=== PATIENT | female | born 1970 | race Caucasian/White ===

== ENCOUNTER 2022-03-02 01:23 | Day surgery (SDC) | payer BC, SELFPAY ==
[2022-02-14 11:34] VITALS: BMI 24.2
[2022-03-02 09:01] VITALS: BMI 24.1
[2022-03-02 09:03] VITALS: BP 109/67; PULSE 88; RESP 20; TEMP 36.8; O2SAT 100
[2022-03-02] MEDS: LACTATED RINGERS 1,000 ML 150 ML IV CONT (09:11)
--- NOTE | 2022-03-02 09:34 | PM.HPGS ---
History of Present Illness History of Present Illness Consent: Risks, benefits, and alternatives have been discussed and questions answered. Patient agrees to proceed with procedure. Chief complaint: hx colon polyps, abdom. distention, Abnor.CT scan Narrative: Dalia Dickson is a 52 year old female who has had problems with constipation lately. His CT scan of the abdomen that showed a narrowing in the area of the sigmoid colon. She had had a colonoscopy about 3 years ago with removal of a polyp from the sigmoid colon Review of Systems Review of Systems: All systems reviewed & are unremarkable except as noted in HPI and below PMFSH Past Medical History Medical History Abnormal digestive system diagnostic imaging Bloating UTI (urinary tract infection) Family History Family History Mother Hypertension Heart disease Father Hypertension Grandparent Cancer Social History Social History Smoking status: Current every day smoker Tobacco type: e-cigarettes/vaping Second hand tobacco smoke exposure: Yes Alcohol intake: unknown Alcohol use details: Rarely Substance use: never Substance use type: does not use Living arrangements: with family Spiritual care concerns: No Meds Home Medications and Allergies Home Medications Medication Instructions Recorded Confirmed Type acetaminophen 650 mg 650 mg PO .prn PRN Pain 01/24/22 02/14/22 History tablet,extended release (Tylenol Arthritis Pain) meloxicam 15 mg tablet 15 mg PO DAILY PRN Pain 01/24/22 02/14/22 History pregabalin 50 mg capsule (Lyrica) 50 mg PO BID 01/24/22 02/14/22 History Allergies Allergy/AdvReac Type Severity Reaction Status Date / Time No Known Allergies Allergy Verified 03/02/22 09:00 Vital Signs Vital Signs - 24 hr 03/02/22 09:03 Temperature 36.8 C Pulse Rate 88 Respiratory Rate 20 Blood Pressure 109/67 Pulse Oximetry 100 Oxygen Delivery Room Air Exam Const: General: alert Orientation/consciousness: patient oriented x3 Resp: Auscultation: clear to auscultation bilaterally Cardio: Rhythm: regular rhythm GI: GI Palp: Yes Soft to palpation and No Tenderness to palpation present (GI) Neuro: General: patient oriented x3 Assessment and Plan Assessment and plan (1) Abnormal digestive system diagnostic imaging: Code(s): R93.3 - Abnormal findings on diagnostic imaging of other parts of digestive tract Status: Acute Assessment and Plan: Colonoscopy with possible biopsy or polypectomy or cautery or injection of substances.
--- NOTE | 2022-03-02 09:41 | WPDANESEPPF ---
Anes - Initial Pre Proc Eval Procedure: Operation Date: 03/02/22 10:00 Proposed Procedures p Colonoscopy - Rc Blake MD Date/Time: 03/02/22 09:41 Surgeon: Rc Blake MD Pre Op Diagnosis: hx colon polyps, abdom. distention, Abnor.CT scan Patient Data Age: 52 Gender: F Height: 1.65 m Weight: 65.8 kg Last Vital Signs Temp 98.2 F 03/02/22 09:03 Pulse 88 03/02/22 09:03 Resp 20 03/02/22 09:03 BP 109/67 03/02/22 09:03 Pulse Ox 100 03/02/22 09:03 O2 Del Method Room Air 03/02/22 09:03 Allergies Allergy/AdvReac Type Severity Reaction Status Date / Time No Known Allergies Allergy Verified 03/02/22 09:00 Home Medications Medication Instructions Recorded Confirmed Type acetaminophen 650 mg 650 mg PO .prn PRN Pain 01/24/22 02/14/22 History tablet,extended release (Tylenol Arthritis Pain) meloxicam 15 mg tablet 15 mg PO DAILY PRN Pain 01/24/22 02/14/22 History pregabalin 50 mg capsule (Lyrica) 50 mg PO BID 01/24/22 02/14/22 History Patient hx anesthesia problems: none Family hx anesthesia problems: none Results Review: All pre-operative results and documents have been reviewed as part of the pre-operative evaluation. [facility] Past Medical History Medical History Abnormal digestive system diagnostic imaging Bloating UTI (urinary tract infection) Family History Family History Mother Hypertension Heart disease Father Hypertension Grandparent Cancer Social History Social History Smoking status: Current every day smoker Tobacco type: e-cigarettes/vaping Second hand tobacco smoke exposure: Yes Alcohol intake: unknown Alcohol use details: Rarely Substance use: never Substance use type: does not use Living arrangements: with family Spiritual care concerns: No Anes - Eval Final PreProcedure Day of Procedure 03/02/22 09:41 Patient weight: normal Heart: regular rate and rhythm Lungs: clear to auscultation Airway: Mallampati scale class II Neurological: alert and oriented Last oral intake: >/= 8 hours ASA classification: II Emergent: no Anesthetic plan: proceed Anesthesia type and monitoring: general GIVS and standard monitoring Results Review: All pre-operative results and documents have been reviewed as part of the pre-operative evaluation. Informed Consent: The patient's anesthetic plan and its attendant risks and benefits were discussed with the patient/family/POA. Questions were solicited and answers provided to the satisfaction of the patient/family/POA.
[2022-03-02 10:03] VITALS: BP 100/64; PULSE 76; RESP 20; O2SAT 100
[2022-03-02 10:13] VITALS: BP 115/61; PULSE 69; RESP 20; O2SAT 98
[2022-03-02 10:23] VITALS: BP 120/73; PULSE 71; RESP 20; O2SAT 100
== END 2022-03-02 10:34 | disposition home or self-care (01) ==
PROVIDERS: PCP Internal Medicine; Visit Provider Internal Medicine Gastroenterology
PROC: 0DJD8ZZ Inspection of Lower Intestinal Tract, Via Natural or Artificial Opening Endoscopic (ICD-10-PCS; CPT 45378; principal; 2022-03-02 10:00)
DX: R93.3 Abnormal findings on diagnostic imaging of other parts of digestive tract (principal); D12.5 Benign neoplasm of sigmoid colon; R14.0 Abdominal distension (gaseous)
CPT/HCPCS: 45385; 88305; J2704; J7120